=== PATIENT | male | born 1980 | race Caucasian/White ===

== ENCOUNTER 2022-10-03 05:33 | Day surgery (SDC) | payer OTHER ==
[~2022-10-03 05:33] MED LIST: Pre Op ABX Message 1 EACH MISC MISCELLANE ONE
[2022-10-03] MEDS ORDERED: LACTATED RINGERS 1,000 ML IV ONE (06:15)
[2022-10-03] MEDS ORDERED: ONDANSETRON 4 MG/2 ML VIAL ONE (06:24)
[2022-10-03 06:26] LABS: Glucose,Whole Blood 200 mg/dL (70-110)
[2022-10-03] MEDS ORDERED: DEXAMETHASONE SOD PHOSPHATE 4 MG/ML 1 ML VIAL IVP ONE (06:27)
[2022-10-03] MEDS ORDERED: ONDANSETRON 4 MG/2 ML VIAL IVP ONE (06:27)
[2022-10-03 06:31] LABS: Basophils # (A) 0.1 k/uL (0-0.2); Basophils % (A) 0 %; Eosinophils # (A) 0.3 k/uL (0-0.7); Eosinophils % (A) 3 %; HCT 49.8 % (39.0-53.0); HGB 15.9 gm/dL (13.0-17.5); Lymphocytes # (A) 3.1 k/uL (1.0-4.8); Lymphocytes % (A) 24 %; MCH 29.3 pg (25.0-35.0); MCV 91.5 fL (80.0-100.0); Mean Platelet Volume 9.4; Monocytes # (A) 0.7 k/uL (0-1.0); Monocytes % (A) 5 %; Neutrophils # (A) 8.4 k/uL (1.3-7.7); Neutrophils % (A) 66 %; Platelet Count 243 k/uL (150-450); RBC 5.44 m/uL (4.30-5.90); RDW 13.6 % (11.5-15.5); WBC 12.8 k/uL (3.8-10.6)
[2022-10-03] MEDS ORDERED: fentaNYL (PF) 50 MCG/ML 2 ML AMP IVP ONE (06:43)
[2022-10-03] MEDS ORDERED: MIDAZOLAM 2 MG/2 ML VIAL IVP ONE (06:43)
[2022-10-03] MEDS ORDERED: TRANEXAMIC 1,000 MG/100ML-NACL 1,000 MG in SALINE 1 100ML.BAG IVPB PRN (07:04)
[2022-10-03] MEDS ORDERED: ceFAZolin 3 GM in SODIUM CHLORIDE 0.9% 100 ML IVPB ONE (07:09)
[2022-10-03] MEDS ORDERED: INSULIN ASPART (NovoLOG) 100 UNIT/ML VIAL SQ ONE ×2 (07:10→09:59)
[2022-10-03] MEDS ORDERED: MIDAZOLAM 2 MG/2 ML VIAL ONE (07:27)
[2022-10-03] MEDS ORDERED: PHENYLEPHRINE-0.9% NACL SYG 1,000 MCG/10 ML SYRINGE ONE (07:27)
[2022-10-03] MEDS ORDERED: PROPOFOL 10 MG/ML 20 ML VIAL IV ONE (07:27)
[2022-10-03] MEDS ORDERED: LIDOCAINE 2% INJ 20 MG/ML (2 ML VIAL) ONE (07:27)
[2022-10-03] MEDS ORDERED: GLYCOPYRROLATE 0.2 MG/ML 2 ML VIAL ONE (07:27)
[2022-10-03] MEDS ORDERED: fentaNYL (PF) 50 MCG/ML 2 ML AMP ONE (07:27)
[2022-10-03] MEDS ORDERED: NEOSTIGMINE 1 MG/ML 10 ML VIAL ONE (07:27)
[2022-10-03] MEDS ORDERED: SUCCINYLCHOLINE CHLORIDE 200 MG/10 ML VIAL IV ONE (07:27)
[2022-10-03] MEDS ORDERED: DEXAMETHASONE SOD PHOSPHATE 4 MG/ML 1 ML VIAL ONE (07:27)
[2022-10-03] MEDS ORDERED: ROCURONIUM 10 MG/ML (5 ML VIAL) IV ONE (07:27)
[2022-10-03] MEDS ORDERED: ROPIVACAINE 5 MG/ML 30 ML VIAL ONE (07:27)
[2022-10-03] MEDS ORDERED: TRANEXAMIC 1,000 MG/100ML-NACL PREMIX BAG ONE (07:27)
[2022-10-03] MEDS ORDERED: BUPIVACAINE (PF) 0.25% 30 ML VIAL SQ ONE (08:04)
[2022-10-03 08:57] VITALS: TEMP 96.8
[2022-10-03 09:17] LABS: Glucose,Whole Blood 250 mg/dL (70-110)
[2022-10-03 09:51] LABS: Glucose,Whole Blood 274 mg/dL (70-110)
[2022-10-03 09:53] VITALS: RESP 18
--- NOTE | 2022-10-03 10:06 | OP ---
OPERATIVE REPORT DATE OF SERVICE : 10/03/2022 PROCESSING ANALYST: Elpidio Belle PA-C. PREOPERATIVE DIAGNOSES: 1. Right shoulder full-thickness rotator cuff tear. 2. Right shoulder subacromial impingement. POSTOPERATIVE DIAGNOSES: 1. Right shoulder full-thickness tear of the supraspinatus and anterior infraspinatus 2 cm x 2 cm. 2. Right shoulder type 2 to 3 anterolateral acromial spur. PROCEDURES PERFORMED: 1. Right shoulder arthroscopic rotator cuff repair, 2 cm x 2 cm tear of the supraspinatus and anterior infraspinatus. 2. Right shoulder arthroscopic acromioplasty. ANESTHESIA: General. ESTIMATED BLOOD LOSS: Minimal. TOURNIQUET: None. DRAINS: None. COMPLICATIONS: None apparent. DISPOSITION: Postanesthesia care unit. EXAMINATION UNDER ANESTHESIA OF THE RIGHT SHOULDER: Elevation 160 degrees. External rotation at the side 50 degrees. External rotation at 90 degrees of abduction was 90 degrees. Internal rotation at 90 degrees of abduction was 70 degrees. Sulcus less than 1 cm. Anterior translation glenoid face. Posterior translation glenoid face. ARTHROSCOPIC FINDINGS: Right shoulder: 1. Superior labrum: Normal superior labrum. There was no evidence of tearing. The long head of the biceps tendon was intact. 2. Anterior inferior labrum: Normal glenoid labral attachment. 3. Posterior labrum: Normal glenoid labral attachment. 4. Humeral head cartilage normal. 5. Rotator cuff full-thickness tear of the supraspinatus and anterior infraspinatus 2 cm x 2 cm with minimal retraction. 6. Glenoid face: Cartilage was normal. 7. Subacromial space: Significant fraying of the undersurface of the coracoacromial ligament with a type 2 to 3 anterolateral acromial spur. INDICATIONS FOR PROCEDURE: Ceferino is a very pleasant 42-year-old male with right shoulder pain. He sustained injury to the shoulder. There is no weakness as well as significant pain in the shoulder. He has been through a fairly significant course of nonoperative treatment up to this point. Physical examination and MRI revealed tearing of the rotator cuff. At this point, he feels that he has failed nonoperative treatment and would like to proceed with operative intervention. Long discussion was held with the patient with regard to treatment options. The risks of procedure were all discussed with him in detail. These risks included but were not limited to risk of infection, nerve damage, bleeding, pain, and a small risk of deep vein thrombosis which could lead to fatal pulmonary embolism. Further risks included lack of healing of rotator cuff and a possibility for biceps contour change with a biceps tenotomy. The patient understands the operation as well as the fact that there was no guarantee of improvement of his symptoms. Appropriate informed consent was obtained. DESCRIPTION OF THE PROCEDURE: The patient was identified in the preoperative holding area. Surgical site was marked by both the patient and myself. He was given 2 g of Ancef IV for prophylactic purposes. He was then transported to the operative suite. He was placed supine on the operating room table. The patient was then intubated endotracheally and received general anesthesia throughout the operative procedure. An examination under anesthesia was then performed, and the findings were noted as above. The patient was then placed into the beach chair position and well-padded in preparation for surgery. Great care was taken to ensure the cervical spine was in neutral alignment, well-padded, and maintained that way throughout the operative procedure. Great care was also taken to ensure that his legs were appropriately padded as well. The patient's right upper extremity was then prepped and draped in usual sterile fashion. Standard surgical pause was undertaken to ensure that we were operating the correct site and that appropriate preoperative antibiotics had been given. All staff in the room were in agreement, and we proceeded. The acromion, AC joint, clavicle, and coracoid were marked with a surgical pen. The skin of the anticipated portal sites was also marked with a surgical pen. The skin of the anticipated portal sites was then injected with 0.25% Marcaine with epinephrine. I then proceeded to make the posterior portal. A 30-degree arthroscope was introduced into the glenohumeral joint through this portal. The arthroscopic pump pressure was set at 40 mmHg and maintained at that level throughout the entire case. Next, utilizing an 18-gauge spinal needle to topically localize the placement, the anterior-superior portal was made. This was made just underneath the biceps tendon and high in the rotator interval. A small blue 5.75 mm cannula was then placed, and the outflow was then done through this cannula. A diagnostic arthroscopy of the shoulder was then performed. The findings were noted as above. At this point, no further work was deemed necessary from intra-articular. The arthroscope was removed from the glenohumeral joint, and utilizing the same posterior skin incision, it was placed in the subacromial space. An 18-gauge spinal needle utilized to topically localize the placement. The lateral portal was then made under direct visualization. A subacromial bursectomy was then performed utilizing synovial shaver as well as the ArthroCare wand. There was significant fraying of the undersurface of the coracoacromial ligament. This was then taken down utilizing ArthroCare wand. This exposed underlying type 2-3 anterolateral acromial spur. I then proceeded with an acromioplasty. Utilizing synovial shaver in a dulce maria type fashion, the acromioplasty was completed. When the acromioplasty was completed, the arthroscope was placed in the lateral portal and the shaver placed posteriorly to ensure it was adequate and coplanar posterior aspect of the acromion. I then proceeded with repair of the rotator cuff tear. He had a large full-thickness tear of the supraspinatus and anterior infraspinatus. This measured approximately 2 cm x 2 cm. The footprint of the greater tuberosity was then debrided of all devitalized tissue utilizing synovial shaver as well as the ArthroCare wand. I then performed a light decortication of the greater tuberosity utilizing synovial shaver in a dulce maria-type fashion. This provided a nice bleeding surface to repair. I then made a fourth portal off the anterolateral angle of the acromion. Again, this was done after first localizing its placement with an 18-gauge spinal needle. I then made a decision to proceed with an Arthrex SpeedBridge type double-row equivalent rotator cuff repair. Arthrex 4.75 mm BioComposite SwiveLock anchor loaded with a FiberTape suture was placed in the most posterior medial aspect of the footprint. These FiberTape sutures were shuttled through the posterior aspect of rotator cuff with a Scorpion suture passer. The second 4.75 mm BioComposite anchor was placed on the most anteromedial aspect of the footprint. This also was preloaded with a FiberTape suture. These FiberTapes were shuttled through good quality anterior rotator cuff tendon. The most posterior limb of the posterior FiberTape and the most posterior limb of the anterior FiberTape were brought out through the lateral portal. The awl was placed most posterolateral aspect of the footprint. The FiberTape sutures were shuttled through 4.75 mm BioComposite SwiveLock anchor. They were tensioned appropriately and the anchor was then placed with excellent purchase in bone. The FiberTapes were cut flush with the anchor. The remaining anterior and posterior FiberTapes were brought out through the anterolateral portal. The awl was placed on the most anterolateral aspect of the footprint. Again, a 4.75 mm BioComposite anchor was chosen. The remaining FiberTapes were shuttled through the eyelet of the anchor tensioned appropriately. The anchor was then placed with excellent purchase of bone. These FiberTape sutures were also cut flush with the anchor. With the arthroscope in the lateral portal, the repair was then inspected and probed. The rotator cuff was then repaired very securely back to the footprint. All 4 anchors had excellent purchase in bone. It was a watertight closure repair. At this point, no further work was deemed necessary. The shoulder was thoroughly irrigated and drained with outflow cannula. The arthroscopic equipment was removed from the shoulder. The arthroscopic portals were then closed with 3-0 nylon interrupted suture. Sterile compressive dressings were applied. The patient's right upper extremity was placed in a standard sling. All sponge and needle counts were deemed correct prior to closure. The patient tolerated the procedure without apparent complication. He was transferred to recovery room in stable condition. MMODL / IJN: [id number] /
[2022-10-03 10:45] VITALS: BP 102/75; PULSE 75
--- NOTE | 2022-10-03 19:06 | P.ANPRN ---
Procedure Note - Anesthesia - Nerve Block Performed Right Interscalene Single Time Out Performed: Yes Date of Procedure: 10/03/22 Procedure Start Time: 06:42 Procedure Stop Time: 06:53 Location of Patient: PreOp Indication: Acute Post-Operative Pain, Requested by Surgeon Sedation Type: Sedate with meaningful contact maintained Preparation: Sterile Prep Position: Supine Needle Types: Pajunk Needle Gauge: 21 Ultrasound used to visualize needle placement: Yes Ultrasound used to observe medication spread: Yes Blood Aspirated: No Pain Paresthesia on Injection Noted: No Resistance on Injection: Normal Image Stored and Saved: Yes Events: Uneventful and Well Tolerated (Ropivacaine 0.5% 20 mL plus dexamethasone 4 mg)
== END 2022-10-03 11:09 | disposition home or self-care (01) ==
LOC: OR 05:33
PROVIDERS: ATTEND Orthopaedic Surgery Sports Medicine
DX: M75.121 Complete rotator cuff tear or rupture of right shoulder, not specified as traumatic (principal); M77.8 Other enthesopathies, not elsewhere classified; G89.18 Other acute postprocedural pain; I10 Essential (primary) hypertension; E11.9 Type 2 diabetes mellitus without complications; F17.200 Nicotine dependence, unspecified, uncomplicated; F12.90 Cannabis use, unspecified, uncomplicated; F41.9 Anxiety disorder, unspecified; F32.A Depression, unspecified; K21.9 Gastro-esophageal reflux disease without esophagitis; G35 Multiple sclerosis; E78.5 Hyperlipidemia, unspecified; F90.9 Attention-deficit hyperactivity disorder, unspecified type; Z79.85 Long-term (current) use of injectable non-insulin antidiabetic drugs; Z79.899 Other long term (current) drug therapy; Z91.048 Other nonmedicinal substance allergy status; Z79.1 Long term (current) use of non-steroidal anti-inflammatories (NSAID)
CPT/HCPCS: 85025; 29827; 29826; 64415; C1713 ×3; J2250; J0330; J1100; J2710; J0690; J2405; J3010; J2795; J2370; J2704; J2001